=== PATIENT | male | born 1940 | race Caucasian/White ===

== ENCOUNTER 2021-10-03 11:53 | Outpatient (REF) | payer OTHER, SELFPAY ==
--- NOTE | ~2021-10-03 | CT_ITS ---
EXAMINATION: CT ABDOMEN AND PELVIS WITH CONTRAST CLINICAL INFORMATION: Prostate cancer staging. COMPARISON: None TECHNIQUE: Multidetector volumetric images were obtained from the superior aspect of the liver through the pubic symphysis following administration 85 mL of Omnipaque 350 intravenous contrast. Sagittal and coronal reformatted images were obtained on the technologist's workstation. Oral contrast: Yes This CT examination was performed using dose optimization techniques as appropriate, variously including the following: *Automated exposure control *Adjustment of mA and/or kV according to patient size (this includes techniques or standardized protocols for targeted exams where dose is matched to indication/reason for exam; i.e. extremities or head) *Use of iterative reconstruction technique DLP: 919 mGy-cm FINDINGS: LUNG BASES: The visualized lung bases are unremarkable. LIVER, GALLBLADDER, AND BILIARY TREE: The liver is normal in size, shape, and attenuation. No focal hepatic lesion or biliary ductal dilatation is present. The gallbladder is unremarkable with no evidence of radiopaque gallstones, gallbladder wall thickening, or obvious pericholecystic inflammatory changes. PANCREAS: Unremarkable. SPLEEN: Unremarkable. ADRENAL GLANDS: Unremarkable. KIDNEYS AND URETERS: The kidneys are normal in size, shape, and attenuation. No hydronephrosis, hydroureter, or calculi seen. There are bilateral renal cysts. Largest cysts measure 2.5 cm in the upper pole the right kidney and lower pole of the left kidney. No imaging follow-up is indicated. There is no hydronephrosis. There is mild dilatation of the left distal ureter and stranding of the surrounding fat in the left upper pelvis. This abuts the sigmoid colon and may be related to diverticular disease. The left ureter distal to this region is normal in caliber. BLADDER: Unremarkable. GASTROINTESTINAL TRACT: There is diverticulosis of the colon. There is a duodenal diverticulum adjacent to the pancreas. No evidence of diverticulitis is seen. The small and large bowel are otherwise unremarkable. The appendix is unremarkable. ABDOMINAL WALL: No significant hernia is appreciated. LYMPH NODES: There are retroperitoneal lymph nodes in the abdomen and pelvis. Largest lymph nodes are upper normal in size. Largest lymph nodes are a 10 mm right retroperitoneal pelvic lymph node adjacent to the common iliac vein axial image 55 series 3 and lower pelvic left periaortic lymph node axial image 38 series 3. VASCULAR: Unremarkable. PELVIC VISCERA: The prostate gland is slightly enlarged and measures 4.2 x 5 x 5 cm in AP transverse dimension. The periprostatic fat is normal appearing. Seminal vesicles are normal-appearing. OSSEOUS STRUCTURES: There are degenerative changes of the spine and hip joints. There are small sclerotic lesions in both proximal femurs. 5 mm on the right and 3 mm on the left. The appearance is nonspecific in the mid represent small bone islands. CT/CT abdomen pelvis w con IMPRESSION: Slightly enlarged prostate gland. No pelvic mass or fatty infiltration seen. Retroperitoneal lymphadenopathy in the lower abdomen and upper pelvis. Largest lymph nodes are upper normal in size. Mild focal dilatation of the left distal ureter and fat stranding in the upper pelvis. This abuts the sigmoid colon and may be related to diverticular disease. 2 small nonspecific sclerotic lesions in the proximal femurs. These may represent bone islands. Fleischner guidelines were followed.
[2021-10-03] MEDS: iohexoL 350 MG/ML 100 ML INFUS..BTL IV (14:57)
== END 2021-10-03 11:54 | disposition home or self-care (01) ==
LOC: HO.CT 11:53
PROVIDERS: Visit Provider Radiology Radiation Oncology
DX: C61 Malignant neoplasm of prostate (principal)
CPT/HCPCS: 74177; Q9967